=== PATIENT | male | born 1965 | race Caucasian/White ===

== ENCOUNTER 2022-02-04 02:55 | Day surgery (SDC) | payer OTHER, SELFPAY ==
[2022-01-22 12:18] VITALS: BMI 29.2
--- NOTE | 2022-02-04 07:25 | P.PNAN_ITS ---
Anes - Initial Pre Proc Eval Procedure: Operation Date: 02/04/22 11:00 Proposed Procedures p Screening Colonoscopy - Jake Dacosta MD Date/Time: 02/04/22 07:25 Surgeon: Jake Dacosta MD Pre Op Diagnosis: family hx of colon ca, neoplasm screening Patient Data Age: 56 Gender: M Height: 1.68 m Weight: 82 kg Allergies Allergy/AdvReac Type Severity Reaction Status Date / Time No Known Allergies Allergy Verified 02/04/22 10:04 Home Medications Medication Instructions Recorded Confirmed Type cetirizine 10 mg tablet 10 mg PO DAILY 01/19/20 01/22/22 History pantoprazole 40 mg tablet,delayed See Rx Instructions .ROUTE 10/29/21 01/22/22 Rx release .COMPLEX #90 tablet amlodipine 10 mg tablet 10 mg PO DAILY #90 tablet 12/25/21 01/22/22 Rx metoprolol tartrate 25 mg tablet 25 mg PO BID #180 tablet 12/25/21 01/22/22 Rx simvastatin 10 mg tablet See Rx Instructions .ROUTE 02/04/22 02/04/22 Rx .COMPLEX #90 tablet Patient hx anesthesia problems: none Family hx anesthesia problems: none Results Review: All pre-operative results and documents have been reviewed as part of the pre-operative evaluation. [facility] Past Medical History Medical History (Updated 02/04/22 @ 10:20 by Jake Dacosta MD) GERD (gastroesophageal reflux disease) HLD (hyperlipidemia) Hypertension Family History Family History Mother Family history of migraine headaches Hypertension Family history of cardiac disorder Family history of arthritis Family history of diabetes mellitus in first degree relative Father Family history of arthritis Carcinoma of colon Social History Social History Smoking status: Never smoker Alcohol intake: current Drinks per week: 8 Substance use: never Substance use type: does not use Living arrangements: with roommate(s) Spiritual care concerns: No Anes - Eval Final PreProcedure Day of Procedure 02/04/22 07:25 Patient weight: overweight Heart: regular rate and rhythm Lungs: clear to auscultation and normal air movement Airway: Mallampati scale class II Neurological: alert and oriented Last oral intake: >/= 8 hours ASA classification: II Emergent: no Anesthetic plan: proceed Anesthesia type and monitoring: general GIVS and standard monitoring Results Review: All pre-operative results and documents have been reviewed as part of the pre-operative evaluation. Informed Consent: The patient's anesthetic plan and its attendant risks and benefits were discussed with the patient/family/POA. Questions were solicited and answers provided to the satisfaction of the patient/family/POA.
[2022-02-04 10:05] VITALS: BP 166/86; PULSE 75; RESP 18; TEMP 36.4; O2SAT 100
[2022-02-04] MEDS: LACTATED RINGERS 1,000 ML 150 ML IV CONT (10:17)
--- NOTE | 2022-02-04 10:18 | WPDGICN ---
Assessment and Plan Assessment and plan (1) Family history of colon cancer in father: Code(s): Z80.0 - Family history of malignant neoplasm of digestive organs Status: Acute Assessment and Plan: Patient's father has had colon cancer. For this reason screening colonoscopy is advised at 5 year intervals. (2) History of colon polyps: Code(s): Z86.010 - Personal history of colonic polyps Status: Acute Assessment and Plan: Patient found to have benign adenomatous colon polyp removed from the colon 2014. Plan is for surveillance colonoscopy at this time. GI Consult Note Consult date/time: 02/04/22 10:18 HPI: Cas Crawford is a 56 year old male Presents for screening colonoscopy. Patient's current weight appetite and bowel movements are normal. He denies abdominal pain. He has had no bleeding. Family history is significant his father had colon cancer. Patient did have a benign colon polyp removed time last colonoscopy 2014. He presents today for neoplasia screening colonoscopy. Review of Systems Review of Systems: All systems reviewed & are unremarkable except as noted in HPI and below PMFSH Past Medical History Medical History (Updated 02/04/22 @ 10:20 by Jake Dacosta MD) GERD (gastroesophageal reflux disease) HLD (hyperlipidemia) Hypertension Family History Family History Mother Family history of migraine headaches Hypertension Family history of cardiac disorder Family history of arthritis Family history of diabetes mellitus in first degree relative Father Family history of arthritis Carcinoma of colon Social History Social History Smoking status: Never smoker Alcohol intake: current Drinks per week: 8 Substance use: never Substance use type: does not use Living arrangements: with roommate(s) Spiritual care concerns: No Meds Home Medications and Allergies Home Medications Medication Instructions Recorded Confirmed Type cetirizine 10 mg tablet 10 mg PO DAILY 01/19/20 01/22/22 History pantoprazole 40 mg tablet,delayed See Rx Instructions .ROUTE 10/29/21 01/22/22 Rx release .COMPLEX #90 tablet amlodipine 10 mg tablet 10 mg PO DAILY #90 tablet 12/25/21 01/22/22 Rx metoprolol tartrate 25 mg tablet 25 mg PO BID #180 tablet 12/25/21 01/22/22 Rx simvastatin 10 mg tablet See Rx Instructions .ROUTE 02/04/22 02/04/22 Rx .COMPLEX #90 tablet Allergies Allergy/AdvReac Type Severity Reaction Status Date / Time No Known Allergies Allergy Verified 02/04/22 10:04 Vital Signs Vital Signs - 24 hr 02/04/22 10:05 Temperature 97.5 F L Pulse Rate 75 Respiratory Rate 18 Blood Pressure 166/86 H Pulse Oximetry 100 Exam Narrative: Physical exam reveals patient be alert. Vital signs stable. HEENT exam is unremarkable. Patient is anicteric. Lungs are clear to auscultation and to percussion. Heart heart is without murmur or extra sounds. Abdominal exam bowel sounds present soft nontender with no organomegaly. Digital external rectal exam is normal.
[2022-02-04 11:11] VITALS: BP 104/66; PULSE 72; RESP 16; O2SAT 100
[2022-02-04 11:21] VITALS: BP 106/74; PULSE 68; RESP 14; O2SAT 100
[2022-02-04 11:31] VITALS: BP 115/76; PULSE 62; RESP 20; O2SAT 100
== END 2022-02-04 11:44 | disposition home or self-care (01) ==
PROVIDERS: PCP Emergency Medicine; Visit Provider Internal Medicine Gastroenterology
PROC: 0DJD8ZZ Inspection of Lower Intestinal Tract, Via Natural or Artificial Opening Endoscopic (ICD-10-PCS; CPT 45378; principal; 2022-02-04 11:00)
DX: Z12.11 Encounter for screening for malignant neoplasm of colon (principal); K64.8 Other hemorrhoids; K57.30 Diverticulosis of large intestine without perforation or abscess without bleeding; Z80.0 Family history of malignant neoplasm of digestive organs; Z86.010 Personal history of colon polyps; I10 Essential (primary) hypertension; E78.5 Hyperlipidemia, unspecified; K21.9 Gastro-esophageal reflux disease without esophagitis
CPT/HCPCS: 45378; J2704; J7120